=== PATIENT | male | born 1990 | race Two or more races ===

== ENCOUNTER 2018-11-27 16:52 | Emergency (ER) | payer SELFPAY ==
[~2018-11-27] VITALS: Ht 170.2 cm; Wt 72.7 kg
[2018-11-27 19:58] VITALS: BP 135/82
[2018-11-27] MEDS ORDERED: MECLIZINE HCL 25 MG TABLET PO ONE (21:30)
[2018-11-27] MEDS ORDERED: ONDANSETRON HCL 4 MG TABLET PO ONE (21:30)
[2018-11-27] MEDS ORDERED: ACETAMINOPHEN 500 MG TABLET PO ONE (21:30)
== END 2018-11-27 21:30 | disposition home or self-care (01) ==
LOC: EMS 16:54
DX: J01.90 Acute sinusitis, unspecified (principal)
CPT/HCPCS: 99284; Q0162

== ENCOUNTER 2021-01-04 03:05 | Emergency (ER) | payer OTHER ==
[~2021-01-04] VITALS: Ht 180.3 cm; Wt 85.0 kg
[2021-01-04 03:08] VITALS: BP 129/74
== END 2021-01-04 04:00 | disposition home or self-care (01) ==
LOC: EMS 03:12
DX: M79.10 Myalgia, unspecified site (principal); Z53.21 Procedure and treatment not carried out due to patient leaving prior to being seen by health care provider

== ENCOUNTER 2023-09-05 10:12 | Emergency (ER) | payer OTHER ==
[~2023-09-05] VITALS: Ht 180.3 cm; Wt 92.0 kg
[2023-09-05 10:16] VITALS: TEMP 100.2
[2023-09-05 10:25] LABS: COVID AG,FIA SOURCE NASAL SWAB
[2023-09-05 10:49] LABS: SARS-COV2 (COVID) ANTIGEN,FIA Negative (Negative)
[2023-09-05 10:50] LABS: INFLUENZA TYPE A NEGATIVE FOR TYPE A (NEGATIVE); INFLUENZA TYPE B NEGATIVE FOR TYPE B (NEGATIVE)
[2023-09-05] MEDS ORDERED: IBUPROFEN 600 MG TABLET PO ONE (13:15)
[2023-09-05] MEDS ORDERED: OXYMETAZOLINE HCL 0.05% 15 ML NASAL SPRAY NASAL ONE (13:15)
[2023-09-05] MEDS ORDERED: IBUP-1492 PO (14:32)
[2023-09-05 14:40] VITALS: BP 118/79; PULSE 89; RESP 20
== END 2023-09-05 14:42 | disposition home or self-care (01) ==
LOC: EMS 10:12
DX: J06.9 Acute upper respiratory infection, unspecified (principal); Z20.822 Contact with and (suspected) exposure to COVID-19
CPT/HCPCS: 99283; 87426; 87430; 87804; C9803